=== PATIENT | female | born 1950 | race Two or more races ===

== ENCOUNTER 2018-04-03 01:48 | Emergency (ER) | payer OTHER ==
[~2018-04-03] VITALS: Ht 154.9 cm; Wt 65.8 kg
[2018-04-03] MEDS ORDERED: Norco 5mg/325mg tab ORAL ONE (02:15)
[2018-04-03] MEDS ORDERED: Ketorolac 60mg Inj IM ONE (04:30)
[2018-04-03] MEDS ORDERED: IBUPROFEN400 M1 PO (04:46)
[2018-04-03] MEDS ORDERED: PERCOCET 5-3251 EACH ORAL (04:46)
[2018-04-03 04:55] VITALS: BP 145/75
[2018-04-03 05:00] VITALS: BP 184/75
--- NOTE | 2018-04-03 11:34 | Diagnostic Imaging Report ---
Indication: Reason For Exam: PAIN Technique: 3 views of the right shoulder Comparison: None Findings: Positioning is suboptimal. There is possible inferior subluxation, although this may be an artifact of positioning. No definite acute fractures. Joint spaces are preserved. Impression: Limited exam. Possible inferior subluxation. No dislocation. No evidence of fracture
--- NOTE | 2018-04-03 20:41 | Emergency Room Report ---
History of Present Illness General Chief Complaint: Pain Present Illness HPI Patient is a 67-year-old female presented after increased right upper extremity pain. Patient reports having increased pain with movement. She denies recent trauma. Patient states that she had had increased pain to the area. This had been not been associated with any increased swelling. Patient had not been having any numbness or weakness. She reports having increased difficulty with range of motion. Allergies: Coded Allergies: No Known Allergies (Unverified , 04/03/18) Patient History Past Medical History: see triage record Last Menstrual Period: n/a Reviewed Nursing Documentation: PMH: Agreed; PSxH: Agreed Nursing Documentation-PMH Hx Cardiac Problems: No - hypothyroidism Hx Asthma: Yes Review of Systems All Other Systems: negative except mentioned in HPI Physical Exam Vital Signs Date Time Temp Pulse Resp B/P (MAP) Pulse Ox O2 Delivery O2 Flow Rate FiO2 04/03/18 01:59 98.4 63 16 184/75 92 98.4 04/03/18 04:55 Room Air General Appearance: well appearing, no apparent distress, alert, GCS 15 Head: normocephalic, atraumatic ENT: hearing grossly normal, normal voice Neck: full range of motion, supple Respiratory: no respiratory distress, speaking full sentences Musculoskeletal: decreased range of mation - right shoulder Neurologic: normal inspection, alert, oriented x3, responsive, piercing specialist III-XII nml as tested, normal gait Psychiatric: mood/affect normal Skin: no rash Medical Decision Making Diagnostic Impression: Primary Impression: Arthritis Additional Impression: Shoulder subluxation, right ER Course Patient presented for shoulder pain. Differential diagnoses included was not limited to fracture, dislocation, a.c. separation, septic joint. Because of complexity of patient's case imaging studies were ordered. X-ray imaging of the right shoulder 3 views interpreted by me showed the subluxation of the glenohumeral joint without evident dislocation. There are arthritic changes are noted. The patient was given pain medications. Patient was noted to have some improvement in her symptoms after medications. Patient was placed in a sling. She is advised follow-up with orthopedics for further outpatient treatment. Patient does not appear to have any evidence of septic joint at this time. The patient is advised to return for worsening pain or other concerns. Last Vital Signs Date Time Temp Pulse Resp B/P (MAP) Pulse Ox O2 Delivery O2 Flow Rate FiO2 04/03/18 05:00 98.4 16 184/75 92 98.4 04/03/18 04:55 78 Room Air Status: improved Disposition: HOME, SELF-CARE Condition: Stable Scripts Ibuprofen (Ibuprofen) 400 Mg Tablet 400 MG PO Q8HR, #30 TAB Prov: Khari Arthur MD 04/03/18 Oxycodone/Acetaminophen 5-325* (PERCOCET 5-325 MG TABLET*) 1 Each Tablet 1 TAB ORAL Q6H PRN for For Pain, #20 TAB 0 Refills Prov: Khari Arthur MD 04/03/18 Patient Instructions: Shoulder Pain Khari Arthur MD Apr 03, 2018 20:41
== END 2018-04-03 05:00 | disposition home or self-care (01) ==
LOC: EMR 03:36
DX: S43.001A Unspecified subluxation of right shoulder joint, initial encounter (principal); X58.XXXA Exposure to other specified factors, initial encounter; Y93.9 Activity, unspecified; Y92.9 Unspecified place or not applicable; M19.011 Primary osteoarthritis, right shoulder; E03.9 Hypothyroidism, unspecified; J45.909 Unspecified asthma, uncomplicated
CPT/HCPCS: 96372; 99283